=== PATIENT | male | born 1955 | race Caucasian/White ===

== ENCOUNTER 2025-05-08 16:20 | Emergency (ER) | payer OTHER, SELFPAY ==
[2025-05-08 16:24] VITALS: BP 185/135
[2025-05-08 17:06] VITALS: BP 160/130; BMI 31.9
--- NOTE | 2025-05-08 17:13 | ED.GENMED ---
History of Present Illness
General
Chief Complaint: Blood Pressure Problem
Source: patient
Time Seen by Provider: 05/08/25 17:01
History of Present Illness
History of Present Illness:
70-year-old male presents to the emergency room for evaluation of elevated blood pressure. Patient had 2 episodes of a tightness or cramping in his hands bilaterally which lasted for less than a minute. [address] today. Another
last evening. Patient denies any chest pressure or tightness. He does not feel short of breath. He denies any recent periods of immobilization or hospitalization. Patient endorses smoking 1 and half packs of cigarettes a day. He does drink a
lot of caffeine. He denies alcohol or drug use. Patient has been told by his marketing programs specialist that he needs a stress test. Patient's marketing programs specialist is at [facility].
Past History
Past History
ED Past Medical History: GERD, HTN, Hypercholesterolemia and Other (Nuñez's esophagus, and the patient had a stress test about 7 years ago for routine evaluation)
ED Past Surgical History: Appendectomy and Cholecystectomy
Social History
Tobacco: Smoker
Drug: None
Living: with family
Employment: Employed
Phy Exam
Physical Exam
Physical Exam:
General: Awake, Alert, Oriented X3. No acute distress.
Vitals: Tachycardic, moderately hypertensive
Head: Atraumatic
Eyes: Pupils equal, EOMI
Throat: Airway intact, no exudates
Neck: Trachea midline
Lungs: Clear and equal b/l
Heart: Regular rate, no murmurs
Abd: Soft, Nontender, No pulsatile mass
Neuro: Nonfocal
Skin: Warm, dry, no rash
Extremities: pulses equal b/l, no edema
Course
Orders/Labs/Results
Orders:
Orders
05/08/25 16:27
Electrocardiogram (*1) Urgent
Reason for Study: Hypertension, Benign
05/08/25 16:28
EKG- Treatment ONCE
05/08/25 17:08
Complete Blood Count/With Diff Urgent
Comprehensive Metabolic Panel Urgent
D-Dimer Urgent
PTT Urgent
TSH Reflex To Free T4 Urgent
Comment: ADD ON
Troponin I Urgent
05/08/25 17:13
Add On- LAB Urgent
Tests Added?: d-dimer
05/08/25 17:17
CT Chest Angio W/wo Iv Contras Urgent
Comment:
Reason For Exam: intermittent arm pain, tachy, htn, ? dissecttion a
05/08/25 19:16
Add On- LAB Urgent
Tests Added?: tsh free t4
Abnormal Lab Results
05/08/25
17:08
Absolute Monos (auto) 1.0 H 10^3/uL
(0.1-0.6)
D-Dimer 0.60 H ug/mlFEU
(0.00-0.50)
Calcium 11.1 H mg/dl
(8.4-10.2)
05/08/25 17:08
05/08/25 17:08
Vital Signs
Initial and Last Documented VS:
Initial Vital Signs
Temp Pulse Resp BP Pulse Ox
98.2 F 120 20 185/135 97
05/08/25 16:24 05/08/25 16:24 05/08/25 16:24 05/08/25 16:24 05/08/25 16:24
Last Documented Vital Signs
Temp Pulse Resp BP Pulse Ox
98.5 F 94 22 156/83 96
05/08/25 17:06 05/08/25 19:30 05/08/25 19:30 05/08/25 19:17 05/08/25 19:30
MDM/Problems Addressed
Differential Diagnosis Includes:
Angina, dissection, PE, uncontrolled hypertension
MDM/Problems Addressed:
Patient presents with upper extremity discomfort. Workup here does not reveal a cause. CTA shows no dissection or evidence of a PE at least central PE. Clinically he is not short of breath and is not having pleuritic chest pain so my suspicion
for PE is low. He did have a resting tachycardia on arrival but this has resolved on its own. His elevated blood pressure is also improved on its own. Troponin is negative. This troponin was drawn more than 3 hours after the onset of his
symptoms and therefore is adequate. Patient has a marketing programs specialist outside of [facility]. Recommend he has close follow-up.
*Radiology
Radiology exam reviewed: radiology read reviewed
*Pulse Oximetry
SaO2: 97
Oxygen Mode of Delivery: Room air
Patient hypoxic: no
*EKG
Interpreted by ED Provider?: Yes
Heart Rate: 109
Rate: tachycardiac
Rhythm: sinus tachycardia
QRS Pattern: right bundle branch block
Ischemia: non-specific ST changes
*Shovel Engineer Interpretation
Rate: tachycardiac
Interpretation: abnormal
Rhythm: sinus tachycardia
*Critical Care Note
Total Time (30-74mins, 75-104mins- exclusive of procedures): Not Applicable
ED Attending Note
-
Portions of this chart may have been created with voice recognition software.� Occasional wrong word or��sound alike� substitutions may have occurred due to the inherent limitations of voice recognition software.
Discharge Plan
Departure
Patient Disposition: Home (Routine Discharge)
Date of Disposition: 05/08/25
Time of Disposition: 19:50
Patient with high blood pressure during this ER visit?: Yes
Condition: Good
Discharge Problem:
Hypertension, uncontrolled, Arm heaviness
Instructions: High Blood Pressure (DC), Chest Pain NON-DHP Adjunct Professor Of English Follow Up
Prescriptions:
No Action
fosinopril 20 MG tablet
20 mg PO BID
aspirin [Ecotrin Low Strength] 81 MG tablet,delayed release (DR/EC)
81 mg PO DAILY
promethazine-phenylephrine 118 ML syrup
240 ml PO [id number] PRN (Reason: cough)
pantoprazole [Protonix] 40 MG tablet,delayed release (DR/EC)
40 mg PO HS
ezetimibe-simvastatin [Vytorin 10-40] 1 EACH tablet
1 ea PO HS
lorazepam 0.5 MG tablet
0.5 mg PO Q4HPRN PRN (Reason: anxiety) Qty: 14 0RF
ipratropium-albuterol [Combivent Respimat] 1 PUFF mist
1 - 2 puff inhalation Q4HPRN PRN (Reason: SOB) Qty: 1 0RF
cyclobenzaprine 10 MG tablet
10 mg PO TIDPRN PRN (Reason: spasm) Qty: 9 0RF
Referrals:
Imelda Lopez DO [Family Provider, Internal Medicine]
Interventions
Interventions:
*Risk Screen - Suicide Last Done: 05/08/25 17:06
*General Assessment Last Done: 05/08/25 16:24
*Neglect/Abuse Screening Last Done: 05/08/25 17:06
*ED- Fall Risk Assessment Last Done: 05/08/25 17:06
*ED COVID-19 Vaccine History Last Done: 05/08/25 17:06
ED- Cardiac Assessment Last Done: 05/08/25 17:06
ED- Neurological Assessment Last Done: 05/08/25 17:06
ED- Pulmonary Assessment Last Done: 05/08/25 17:06
Discharge Date and Time
Print Language: MARSHALLESE
[2025-05-08 17:31] LABS: Hematocrit 47.9 % (39.0-52.0); Hemoglobin 16.4 g/dL (13.0-18.0); Mean Corp Hgb Conc. 34.2 g/dL (33.0-37.0); Mean Corpuscular Volume 82.2 fL (80.0-94.0); Nucleated Red Blood Cells % 0 % (-); Platelet Count 288 10^3/uL (130-400); Red Cell Dist. Width 14.3 % (11.5-14.5)
[2025-05-08 17:51] LABS: Troponin I < 0.012 ng/ml
[2025-05-08 17:55] LABS: ALT (SGPT) 20 U/L (0-50); AST (SGOT) 18 U/L (17-59); Albumin 4.8 g/dl (3.5-5.0); Alkaline Phosphatase 89 U/L (38-126); Blood Urea Nitrogen 16 mg/dl (9-20); Calcium 11.1 mg/dl (8.4-10.2); Carbon Dioxide 23 mmol/L (22-30); Chloride 106 mmol/L (98-107); Estimated Creatinine Clearance 76 ml/min; Glucose 89 mg/dl (70-99); Potassium 4.4 mmol/L (3.5-5.1); Sodium 137 mmol/L (135-145); Total Protein 7.7 g/dl (6.3-8.2); eGFR > 60.00
[2025-05-08 17:58] LABS: APTT 30.1 Sec (23.4-35.0); D-Dimer 0.60 ug/mlFEU (0.00-0.50)
[2025-05-08 18:00] VITALS: BP 148/100
[2025-05-08 19:17] VITALS: BP 156/83
== END 2025-05-08 20:01 | disposition home or self-care (01) ==
LOC: EMR 16:20
PROVIDERS: EMERGENCY PHYSICIAN Emergency Medicine; FAMILY PHYSICIAN Internal Medicine
DX: I10 Essential (primary) hypertension (principal); M79.602 Pain in left arm; M79.601 Pain in right arm; E78.00 Pure hypercholesterolemia, unspecified; I45.10 Unspecified right bundle-branch block; F17.210 Nicotine dependence, cigarettes, uncomplicated; Z90.49 Acquired absence of other specified parts of digestive tract; Z87.19 Personal history of other diseases of the digestive system
CPT/HCPCS: 99284; 71275; 80053; 84443; 84484; 85025; 85379; 85730; 93005; Q9967